=== PATIENT | male | born 1960 | race Caucasian/White ===

== ENCOUNTER 2017-06-01 20:46 | Observation (INO) | payer OTHER ==
--- NOTE | 2017-06-02 00:24 | PDOC ---
History of Present Illness <Taran De León - Last Filed: 06/02/17 06:54> - History of Present Illness Initial Comments: 06/02/17 00:25 Patient is a 56 year old male who presents with self inflicted bilateral arm lacerations. The patient states that he was feeling depressed and hopeless for 3 months. He describes some "life and " event in his life that he does not want to elaborate on pushing him to feel overwhelmed and unable to handle life. He subsequently cut his arms bilaterally with a knife and took 12 codine pills, but reports vomiting due to nausea immediately afterward. He denies having ever done anything like this in the past. He states that he has a lot of stressers in his life with a strained relationship with is and recently losing his housing. He denies weapons in the home, but cannot contract for safty if he were to be discharged. He denies fevers, chills, SOB, chest pain, abdominal pain. <Stefano Parra - Last Filed: 06/03/17 19:55> - General Chief Complaint: Psychiatric Stated Complaint: CUTTING HIMSELF Time Seen by Provider: 06/01/17 21:56 Past History <Taran De León - Last Filed: 06/02/17 06:54> - Past Medical History HTN: Yes - Psycho/Social/Smoking Cessation Hx Anxiety: Yes Suicidal Ideation: No Smoking History: Never smoked Have you smoked in the past 12 months: No Information on smoking cessation initiated: No Hx Alcohol Use: No Drug/Substance Use Hx: No Substance Use Type: None <Stefano Parra - Last Filed: 06/03/17 19:55> - Past Medical History Allergies/Adverse Reactions: Allergies Allergy/AdvReac Type Severity Reaction Status Date / Time No Known Allergies Allergy Verified 06/01/17 21:14 Home Medications: Ambulatory Orders Hydrochlorothiazide 25 mg PO DAILY 06/01/17 Review of Systems - Review of Systems Constitutional: No: Chills, Fever Respiratory: No: Cough, Shortness of Breath Cardiac (ROS): No: Chest Pain, Lightheadedness, Palpitations ABD/GI: Yes: Nausea, Vomiting. No: Constipated, Diarrhea Integumentary: No: Rash Neurological: No: Headache, Numbness, Tingling, Weakness Psychiatric: Yes: Anxiety, Depression, Stressors, Emotional Problems <Stefano Parra - Last Filed: 06/03/17 19:55> *Physical Exam - Vital Signs Last Vital Signs Temp Pulse Resp BP Pulse Ox 97.9 F 70 18 142/97 99 06/01/17 21:15 06/01/17 21:15 06/01/17 21:15 06/01/17 21:15 06/01/17 21:15 <Taran De León - Last Filed: 06/02/17 06:54> - Vital Signs Last Vital Signs Temp Pulse Resp BP Pulse Ox 97.9 F 70 18 142/97 99 06/01/17 21:15 06/01/17 21:15 06/01/17 21:15 06/01/17 21:15 06/01/17 21:15 - Physical Exam Comments: 06/02/17 00:32 General Appearance: Nourished. No Apparent Distress HEENT: No Pharyngeal Erythema, Tonsillar Exudate, Tonsillar Erythema Respiratory/Chest: Lungs Clear, Normal Breath Sounds. No Crackles, Rales, Rhonchi, Wheezing Cardiovascular: Regular Rhythm, Regular Rate. No Murmur, Gallop/S3, Gallop/S4 Gastrointestinal/Abdominal: Normal Bowel Sounds, Soft. No Guarding, Rebound, Tenderness Extremity: Normal Capillary Refill, Multiple superficial lacerations bilaterally on the forearms 6 of which require suturing. 2+ radial pulses. Intact distal sensation to light touch and temperature. Integumentary: positive: Normal Color, Dry, Warm Neurologic: Fully Oriented, Alert, Normal Response, Depressed mood and affect <Frederic Parrael - Last Filed: 06/03/17 19:55> Procedures - Laceration/Wound Repair Both Distal Volar Arm Wound Length: 2.6 to 5.0 cm (Right Arm: 1cm laceration, 3cm laceration, 1.5cm laceration Left Arm: 1cm laceration 2cm Laceration 1cm Laceration) Wound Explored: clean, no foreign body present Wound's Depth, Shape: superficial, linear Irrigated w/ Saline: Yes Anesthesia: 1% Lidocaine Amount of Anesthetic (ccs): 5 Wound Repaired With: Sutures Suture Size/Type: 4:0 Number of Sutures: 9 Layer Closure: Yes Sterile Dressing Applied: Yes <Stefano Parra - Last Filed: 06/03/17 19:55> ED Treatment Course - LABORATORY CBC & Chemistry Diagram: 06/03/17 08:00 06/03/17 08:00 <Stefano Parra - Last Filed: 06/03/17 19:55> Medical Decision Making - Medical Decision Making 06/02/17 06:[address] Quiroga @6:53am. Awaiting call back. <Taran De León - Last Filed: 06/02/17 06:54> - Medical Decision Making 06/02/17 00:33 Patient is a 56 year old male who presents with self inflicted bilateral arm lacerations. Lacerations were repaired with 4-0 nylon sutures. The patient states that he regrets what he did, however he cannot contract for safety if he were to be discharged. We are not comfortable discharging him without psychiatric consultation at this time and will consult psych. <Stefano Parra - Last Filed: 06/03/17 19:55> *DC/Admit/Observation/Transfer <Taran De León - Last Filed: 06/02/17 06:54> <Stefano Parra - Last Filed: 06/03/17 19:55> Diagnosis at time of Disposition: Depression with suicidal ideation, Laceration, Anxiety, Suicidal behavior with attempted self-injury, Dehydration HTN (hypertension) Qualifiers: Hypertension type: unspecified Qualified Code(s): I10 - Essential (primary) hypertension - Discharge Dispostion Condition at time of disposition: Fair
--- NOTE | 2017-06-02 07:44 | PDOC ---
*Physical Exam - Vital Signs Last Vital Signs Temp Pulse Resp BP Pulse Ox 97.9 F 70 18 142/97 99 06/01/17 21:15 06/01/17 21:15 06/01/17 21:15 06/01/17 21:15 06/01/17 21:15 - Physical Exam Comments: 06/02/17 07:41 VSS lying comfortably in stretcher, no acute physical distress Heart Score/ECG Review #1 ECG reviewed & interpreted by me at: 07:46 General ECG Interpretation: Sinus Rhythm, Normal Rate (62), Normal Intervals ( qtc 438, qrs 104), No acute ischemic changes ED Treatment Course - LABORATORY CBC & Chemistry Diagram: 06/02/17 07:47 06/02/17 07:47 Medical Decision Making - Medical Decision Making 06/02/17 07:42 Received signout on this 56y/o M with multiple life stressors who presented last night with cutting 2/2 self-injurious behavior last night. Psychiatry consulted, patient awaiting psych evaluation. Will perform medical clearance evaluation (labs, EKG) while awaiting psychiatry. Dr. Quiroga to see the patient this morning. 06/02/17 10:56 CBC/Chem wnl, EKG wnl. etoh negative, asa/apap pending, utox pending. Clinically unchanged. At this time Medically cleared for psych evaluation. Seen by Dr. Quiroga, patient to be admitted for inpatient care. Case management involved, will arrange for psych inpatient transfer. 06/02/17 13:44 No immediate psych inpatient bed available. Accepted for observation med/surg with 1:[address] Perla, signout given to BECCA Shankar *DC/Admit/Observation/Transfer Diagnosis at time of Disposition: Depression with suicidal ideation - Discharge Dispostion Condition at time of disposition: Fair Admit: Yes
--- NOTE | 2017-06-02 07:59 | PDOC ---
Attending Attestation - Resident Resident Name: Stefano Parra - ED Attending Attestation I have performed the following: I have examined & evaluated the patient, The case was reviewed & discussed with the resident, I agree w/resident's findings & plan, Exceptions are as noted - HPI HPI: 06/02/17 07:57 Self Mutilation---- first time ever Multiple stressors.... Very Depressed - Physicial Exam PE: 06/02/17 07:58 VSS, Flat Affect, Poor Eye Contact Unable to really contract for safety - Medical Decision Making 06/02/17 07:[address] Parra Assessment and Plan- I believe patient needs to see psychiatry prior to disposition in the ED
--- NOTE | 2017-06-02 08:03 | PDOC ---
*Physical Exam - Vital Signs Last Vital Signs Temp Pulse Resp BP Pulse Ox 97.9 F 70 18 142/97 99 06/01/17 21:15 06/01/17 21:15 06/01/17 21:15 06/01/17 21:15 06/01/17 21:15 - Physical Exam Comments: 06/02/17 07:57 GENERAL: Awake, alert, and fully oriented, in no acute distress HEAD: No signs of trauma, normocephalic, atraumatic EYES: PERRLA, EOMI, sclera anicteric, conjunctiva clear NECK: Normal ROM, supple, no lymphadenopathy, JVD, or masses LUNGS: No distress, speaks full sentences, clear to auscultation bilaterally HEART: Regular rate and rhythm, normal S1 and S2, no murmurs, rubs or gallops, peripheral pulses normal and equal bilaterally. EXTREMITIES: Multiple non bleeding horizontal lacerations at bilateral distal volar wrist. Normal inspection, Normal range of motion, no edema. No clubbing or cyanosis. SKIN: Warm, Dry, normal turgor, no rashes or lesions noted. ED Treatment Course - LABORATORY CBC & Chemistry Diagram: 06/02/17 07:47 06/02/17 07:47 Medical Decision Making - Medical Decision Making 06/02/17 07:58 56 yo M who presents with bilateral arm lacerations. Pt. with no h/o of self harm or self inflicted injury presents to the ED with hopelessness and depression for past 3 months. Per checkout by Dr. Haro pt. has been experiencing difficulties with his marriage and contemplated suicide. Pt. currently does not have a plan, but if discharged he cannot definitively ensure his own safety. ED Course: - Awaiting medical clearance and psych referall. 06/02/17 10:14 CBC, CMP Unremarkable 06/02/17 10:15 Alcohol: Neg Acetaminophen Salicylate 06/02/17 11:[address] Quiroga. Pt. to be admitted. *DC/Admit/Observation/Transfer Diagnosis at time of Disposition: Depression with suicidal ideation
[2017-06-02 08:20] LABS: BASOPHIL 0.2 % (0-2.0); EOSINOPHIL 0.2 % (0-4.5); MCH 31.6 pg (25.7-33.7); MCHC 34.4 g/dl (32.0-35.9); MEAN CELL VOLUME 91.7 fl (80-96); MEAN PLT VOLUME 7.8 fl (7.5-11.1); NEUTROPHILS 78.1 % (42.8-82.8); PLATELET COUNT 227 K/MM3 (134-434); RDW 12.9 % (11.9-15.9); WHITE BLOOD COUNT 8.1 K/mm3 (4.0-10.0)
[2017-06-02 08:41] LABS: ALCOHOL < 5.0 mg/dl (0-5)
[2017-06-02 08:45] LABS: ALBUMIN 4.1 g/dl (3.4-5.0); ALK PHOS 80 U/L (45-117); ANION GAP 10 (8-16); BILIRUBIN,TOTAL 0.9 mg/dL (0.2-1.0); CALCIUM 9.4 mg/dL (8.5-10.1); CO2 27 mmol/L (21-32); GLUCOSE,RANDOM 105 mg/dL (74-106); SGOT/AST 7 U/L (15-37); SGPT/ALT 19 U/L (12-78); TOT PROT 7.3 g/dl (6.4-8.2)
--- NOTE | 2017-06-02 10:58 | CON.PSY ---
Psychiatry Consult Chief Complaint: Attempted Suiicide with multiple deep cuts to both wrists and he also toom ten Vicodion tabs. 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 Recently seperated , living in a rented room. No major support sysyems. Reports panic attacks. Symptoms: reports: Depressed Mood, Suicidality, Self destructive thoughts - Previous Psychiatric Treatment Outpatient: None Inpatient: None - Previous Substance Abuse Treatment Outpatient: None Inpatient: None - Allergies Allergies: Allergies Allergy/AdvReac Type Severity Reaction Status Date / Time No Known Allergies Allergy Verified 06/01/17 21:14 - Current Living Status Usual Living Arrangement: Alone - Current Mental Status Evaluation Appearance: Disheveled Attitude: Guarded - Affect Affect: Constrictive Appropriateness: Appropriate to Content - Mood Mood: Depressed - Speech/Language Expressive: Coherent - Psychomotor Activity Psychomotor Activity: Slowed - Thought Process Thought Process: Intact - Thought Content Hallucinations: Absent Delusions: Absent - Cognition Attention: Alert Orientation: Time Memory, Immediate Recall: Intact Memory, Short Term: 3/3 Memory, Remote with Promptin/3 - Concentration Serial Sevens Intact: Yes Simple Calculations Intact: Yes - Abstraction Proverb Interpretation: Intact - Impulse Control Impulse Control: Moderately Impaired - Suicidal Ideation Suicidal Ideation: Yes (laceration of both wrists) - Homicidal Ideation Homicidal Ideation: No Assessment/Plan Patient needs In Patient Psych Admission to treat Major Depression AND SUICIDE bEHAVIOUR.
--- NOTE | 2017-06-02 15:18 | HP ---
Admitting History and Physical - Admission Chief Complaint: suicide attempt History of Present Illness: This is a 56 year old male with pmhx of HTN (no longer on HCTZ) presented to the ED with bilateral wrist lacerations. The patient states he cut himself. He is feeling very overwhelmed, recently from his (a story too long to be told now) he moved out and is living in a room. Currently, he says he does not think he wants to harm himself or has a plan, but he is unsure. He is feeling his heart come out of his chest and anxious. Per ED record pt states he took several vicodin History Source: Patient Limitations to Obtaining History: No Limitations - Past Medical History Cardiovascular: Yes: HTN - Smoking History Smoking history: Never smoked Have you smoked in the past 12 months: No - Alcohol/Substance Use Hx Alcohol Use: No History of Substance Use: reports: None - Social History Usual Living Arrangement: Yes: Alone ADL: Independent History of Recent Travel: No Home Medications - Allergies Allergies/Adverse Reactions: Allergies Allergy/AdvReac Type Severity Reaction Status Date / Time No Known Allergies Allergy Verified 06/01/17 21:14 - Home Medications Home Medications: Ambulatory Orders Hydrochlorothiazide 25 mg PO DAILY 06/01/17 Review of Systems - Review of Systems Constitutional: reports: No Symptoms Eyes: reports: No Symptoms HENT: reports: No Symptoms Neck: reports: No Symptoms Cardiovascular: reports: Palpitations Respiratory: reports: No Symptoms Gastrointestinal: reports: No Symptoms Genitourinary: reports: No Symptoms Musculoskeletal: reports: No Symptoms Integumentary: reports: No Symptoms Neurological: reports: No Symptoms Endocrine: reports: No Symptoms Hematology/Lymphatic: reports: No Symptoms Psychiatric: reports: Anxiety, Depression, Suicidal Physical Examination Vital Signs: Vital Signs Temperature 97.9 F 06/01/17 21:15 Pulse Rate 80 06/02/17 14:33 Respiratory Rate 18 06/02/17 14:33 Blood Pressure 159/102 06/02/17 14:33 O2 Sat by Pulse Oximetry (%) 98 06/02/17 14:33 Constitutional: Yes: Anxious Eyes: Yes: Conjunctiva Clear HENT: Yes: Atraumatic Neck: Yes: Supple Cardiovascular: Yes: Regular Rate and Rhythm, Tachycardia Respiratory: Yes: Regular, CTA Bilaterally Gastrointestinal: Yes: Normal Bowel Sounds, Soft Renal/: Yes: WNL Musculoskeletal: Yes: WNL Extremities: Yes: WNL Edema: No Integumentary: Yes: Erythema (bilateral wrist), Laceration (bilateral wrist) Wound/Incision: Yes: Sutures Intact (bilateral wrist), Open to air, Reddened Neurological: Yes: Alert, Oriented, Cran Nerves II-XII Intact ...Motor Strength: WNL Psychiatric: Yes: Alert, Oriented, Suicidal Ideation Problem List - Problems (1) Suicidal behavior with attempted self-injury Code(s): T14.91 - SUICIDE ATTEMPT (2) Anxiety Code(s): F41.9 - ANXIETY DISORDER, UNSPECIFIED (3) Depression Code(s): F32.9 - MAJOR DEPRESSIVE DISORDER, SINGLE EPISODE, UNSPECIFIED (4) HTN (hypertension) Code(s): I10 - ESSENTIAL (PRIMARY) HYPERTENSION Assessment/Plan Assessment: 56 year old male admitted with suicidal attempt. Plan: 1. Suicidal Attempt - 2PC commit - Awaiting psych center placement - 1:1 monitoring - 1/2 ns 83cc/hr x1L - Wound cleansing daily - Toxicity levels pending Visit type - Emergency Visit Emergency Visit: Yes ED Registration Date: 06/02/17 Care time: The patient presented to the Emergency Department on the above date and was hospitalized for further evaluation of their emergent condition. - New Patient This patient is new to me today: Yes Date on this admission: 06/02/17 - Critical Care Critical Care patient: No
[2017-06-02] MEDS ORDERED: SODIUM CHLORIDE 0.45% 1,000 ML IV SCH (16:00)
[2017-06-02 16:39] VITALS: BMI 22.7
--- NOTE | 2017-06-02 17:27 | EKG ---
Test Reason : Blood Pressure : / mmHG Vent. Rate : 062 BPM Atrial Rate : 062 BPM P-R Int : 154 ms QRS Dur : 104 ms QT Int : 432 ms P-R-T Axes : 048 -05 033 degrees QTc Int : 438 ms NORMAL SINUS RHYTHM NORMAL ECG NO PREVIOUS ECGS AVAILABLE REPEAT EKG IF CLINICALLY INDICATED Confirmed by EARLE CLARKE MD ([id number]) on 06/02/2017 5:27:02 PM Referred By: Confirmed By:EARLE CLARKE MD
[2017-06-02 17:37] LABS: URINE APPEARANCE CLEAR; URINE BILIRUBIN NEGATIVE (NEGATIVE); URINE BLOOD NEGATIVE (NEGATIVE); URINE COLOR DKYELLOW; URINE GLUCOSE (UA) NEGATIVE (NEGATIVE); URINE KETONE TRACE (NEGATIVE); URINE LEUK ESTERASE NEGATIVE (NEGATIVE); URINE NITRITE NEGATIVE (NEGATIVE); URINE UROBILINOGEN NEGATIVE mg/dL (0.2-1.0)
--- NOTE | 2017-06-02 17:42 | PDOC ---
*Physical Exam - Vital Signs Last Vital Signs Temp Pulse Resp BP Pulse Ox 97.9 F 84 18 147/83 95 06/01/17 21:15 06/02/17 16:20 06/02/17 16:20 06/02/17 16:20 06/02/17 16:20 ED Treatment Course - LABORATORY CBC & Chemistry Diagram: 06/02/17 07:47 06/02/17 07:47 - ADDITIONAL ORDERS Additional order review: Laboratory Results 06/02/17 06/02/17 07:47 07:47 Sodium 142 Potassium 3.6 Chloride 105 Carbon Dioxide 27 Anion Gap 10 BUN 17 Creatinine 1.0 Creat Clearance w eGFR > 60 Random Glucose 105 Calcium 9.4 Total Bilirubin 0.9 AST 7 L ALT 19 Alkaline Phosphatase 80 Total Protein 7.3 Albumin 4.1 Alcohol, Quantitative < 5.0 06/02/17 07:47 RBC 4.42 MCV 91.7 MCHC 34.4 RDW 12.9 MPV 7.8 Neutrophils % 78.1 Lymphocytes % 14.9 Monocytes % 6.6 Eosinophils % 0.2 Basophils % 0.2 *DC/Admit/Observation/Transfer Diagnosis at time of Disposition: Depression with suicidal ideation, Laceration, Anxiety, Suicidal behavior with attempted self-injury, Dehydration HTN (hypertension) Qualifiers: Hypertension type: unspecified Qualified Code(s): I10 - Essential (primary) hypertension - Discharge Dispostion Condition at time of disposition: Fair Admit: Yes
[2017-06-02 17:48] LABS: URINE PROTEIN 1+ (NEGATIVE)
[2017-06-02 17:49] LABS: URINE BACTERIA RARE /hpf (NONE SEEN); URINE MUCUS RARE; URINE RBC 4 /hpf (0-3); URINE WBC <1 /hpf (3-5)
[2017-06-03 09:04] LABS: BASOPHIL 0.4 % (0-2.0); EOSINOPHIL 0.9 % (0-4.5); MCH 31.4 pg (25.7-33.7); MCHC 34.5 g/dl (32.0-35.9); MEAN CELL VOLUME 91.1 fl (80-96); MEAN PLT VOLUME 8.1 fl (7.5-11.1); NEUTROPHILS 63.6 % (42.8-82.8); PLATELET COUNT 221 K/MM3 (134-434); RDW 12.8 % (11.9-15.9); WHITE BLOOD COUNT 5.2 K/mm3 (4.0-10.0)
[2017-06-03 09:41] LABS: ALBUMIN 4.1 g/dl (3.4-5.0); ALK PHOS 80 U/L (45-117); ANION GAP 10 (8-16); BILIRUBIN,TOTAL 1.3 mg/dL (0.2-1.0); CALCIUM 9.3 mg/dL (8.5-10.1); CO2 28 mmol/L (21-32); CREATININE 1.1 mg/dL (0.7-1.3); GLUCOSE,RANDOM 104 mg/dL (74-106); MAGNESIUM 2.4 mg/dL (1.8-2.4); PHOSPHOROUS 3.1 mg/dL (2.5-4.9); SGOT/AST 5 U/L (15-37); SGPT/ALT 19 U/L (12-78); TOT PROT 6.8 g/dl (6.4-8.2)
--- NOTE | 2017-06-03 18:18 | PN ---
Physical Exam: SUBJECTIVE: Patient seen and examined. He says he feels good, he still is not sure if he would attempt suicide if he left, he doesn't have a plan. Says his family is aware of what happened, including . OBJECTIVE: Vital Signs Period Temp Pulse Resp BP Sys/Bishop Pulse Ox Last 24 Hr 98.0 F-98.7 F 63-78 20-20 124-145/78-96 98 PE Neuro: alert, awake, cn 2-12intact Psych: nervous Pulm: CTAB Cv: s1 s2 rrr no mrg Abd: s nt nd + bs skin: b/l wrist laceration + sutures in tact, area read, no draining Laboratory Results - last 24 hr 06/02/17 06/03/17 06/03/17 17:20 08:00 08:00 WBC 5.2 D RBC 4.48 Hgb 14.1 Hct 40.8 MCV 91.1 MCH 31.4 MCHC 34.5 RDW 12.8 Plt Count 221 MPV 8.1 Neutrophils % 63.6 Lymphocytes % 28.1 D Monocytes % 7.0 Eosinophils % 0.9 D Basophils % 0.4 Sodium 141 Potassium 3.8 Chloride 103 Carbon Dioxide 28 Anion Gap 10 BUN 16 Creatinine 1.1 Creat Clearance w eGFR > 60 Random Glucose 104 Calcium 9.3 Phosphorus 3.1 Magnesium 2.4 Total Bilirubin 1.3 H D AST 5 L D ALT 19 Alkaline Phosphatase 80 Total Protein 6.8 Albumin 4.1 Urine Color Dkyellow Urine Appearance Clear Urine pH 5.0 Ur Specific [place] >= 1.030 H Urine Protein 1+ H Urine Glucose (UA) Negative Urine Ketones Trace H Urine Blood Negative Urine Nitrite Negative Urine Bilirubin Negative Urine Urobilinogen Negative Ur Leukocyte Esterase Negative Urine RBC 4 Urine WBC <1 Urine Bacteria Rare Urine Mucus Rare 06/02/17 06/02/17 07:47 17:20 Salicylates Pending Opiates Screen Pending Methadone Screen Pending Alcohol, Quantitative < 5.0 Assessment: 56 year old male admitted with suicidal attempt. Plan: 1. Suicidal Attempt - 2PC commit - Awaiting psych center placement - 1:1 monitoring - Wound cleansing daily - Toxicity levels pending Problem List - Problems (1) Suicidal behavior with attempted self-injury Code(s): T14.91 - SUICIDE ATTEMPT (2) Anxiety Code(s): F41.9 - ANXIETY DISORDER, UNSPECIFIED (3) Depression Code(s): F32.9 - MAJOR DEPRESSIVE DISORDER, SINGLE EPISODE, UNSPECIFIED (4) HTN (hypertension) Code(s): I10 - ESSENTIAL (PRIMARY) HYPERTENSION Qualifiers: Hypertension type: unspecified Qualified Code(s): I10 - Essential ( primary) hypertension Visit type - Emergency Visit Emergency Visit: Yes ED Registration Date: 06/02/17 Care time: The patient presented to the Emergency Department on the above date and was hospitalized for further evaluation of their emergent condition. - New Patient This patient is new to me today: No - Critical Care Critical Care patient: No
[2017-06-03 19:39] LABS: URINE MARIJUANA THC NEGATIVE ng/ml (CUTOFF=50)
[2017-06-03 20:11] LABS: SALICYLATE < 4.0 mg/dl (0.0-30.0)
--- NOTE | 2017-06-04 13:48 | PN ---
Physical Exam: SUBJECTIVE: Patient seen and examined. He says his thoughts go up and down and hes feeling overwhelmed about losing his living situation and possibly job OBJECTIVE: Vital Signs Period Temp Pulse Resp BP Sys/Bishop Pulse Ox Last 24 Hr 97.7 F-98.0 F 65-78 20-20 124-144/89-94 98-98 PE Neuro: alert, awake, cn 2-12intact Pulm: CTAB Cv: s1 s2 rrr no mrg Abd: s nt nd + bs Skin: b/l wrist laceration + sutures in tact, non draining Psych: appears calm Laboratory Results - last 24 hr 06/02/17 17:20 Opiates Screen Positive Methadone Screen Negative Barbiturate Screen Negative Phencyclidine Screen Negative Ur Amphetamines Screen Negative MDMA (Ecstasy) Screen Negative Benzodiazepines Screen Negative Cocaine Screen Negative U Marijuana (THC) Screen Negative Assessment: 56 year old male admitted with suicidal attempt. Plan: 1. Suicidal Attempt - 2PC commit - Awaiting psych center placement - 1:1 monitoring - Wound cleansing daily - U tox noted Problem List - Problems (1) Suicidal behavior with attempted self-injury Code(s): T14.91 - SUICIDE ATTEMPT (2) Anxiety Code(s): F41.9 - ANXIETY DISORDER, UNSPECIFIED (3) Depression Code(s): F32.9 - MAJOR DEPRESSIVE DISORDER, SINGLE EPISODE, UNSPECIFIED (4) HTN (hypertension) Code(s): I10 - ESSENTIAL (PRIMARY) HYPERTENSION Qualifiers: Hypertension type: unspecified Qualified Code(s): I10 - Essential ( primary) hypertension Visit type - Emergency Visit Emergency Visit: Yes ED Registration Date: 06/02/17 Care time: The patient presented to the Emergency Department on the above date and was hospitalized for further evaluation of their emergent condition. - New Patient This patient is new to me today: No - Critical Care Critical Care patient: No
--- NOTE | 2017-06-05 09:28 | PN ---
Physical Exam: SUBJECTIVE: Patient seen and examined at the bedside. Remains on a 1:1: Appears very nervous, anxious. OBJECTIVE: Cooperative, verbalizing anxiety, nervous appearing Will start low dose Lorazepam 0.5mg TID Re-consult psyche for possible anti depressive therapy? Hypertensive, re-start home dose HCTZ Vital Signs Period Temp Pulse Resp BP Sys/Bishop Pulse Ox Last 24 Hr 97.6 F-98.1 F 68-82 18-20 140-155/88-96 98-98 GENERAL: The patient is awake, alert, and fully oriented, anxious HEAD: Normal with no signs of trauma. EYES: PERRL, extraocular movements intact, sclera anicteric, conjunctiva clear. No ptosis. ENT: Ears normal, nares patent, oropharynx clear without exudates, moist mucous membranes. NECK: Trachea midline, full range of motion, supple. LUNGS: Breath sounds equal, clear to auscultation bilaterally, no wheezes, no crackles ABDOMEN: Soft, nontender, nondistended, normoactive bowel sounds, no guarding, no rebound, no hepatosplenomegaly, no masses. EXTREMITIES: 2+ pulses, warm, well-perfused, no edema. NEUROLOGICAL: anxiety, nervous, verbalizing fear PSYCH: anxiety, nervous, verbalizing fear SKIN: bilateral wrists lacerations/self mutilations, cuts, +sutures, no drainage , no redness, cuts appear to be healing, scabbed over, no bleeding noted Active Medications Generic Name Dose Route Start Last Admin Trade Name Freq PRN Reason Stop Dose Admin Lorazepam 0.5 mg 06/05/17 14:00 Ativan - PO TID [facility] ASSESSMENT/PLAN: Patient is a 56 year old male who presents to the ED on 06/02/2017 with self inflicted bilateral arm lacerations. As per ED records, patient reported feeling depressed, hopeless and anxious. He reported having multiple stressors at home. He reported that he had some "life and " event in his life that he does not want to elaborate which makes him feel overwhelmed and unable to handle life. He subsequently cut his arms bilaterally with a knife and took 12 Vicodin pills. However, he reported in the ED that he vomited due to nausea immediately after taking pills. He states that he has a lot of stresses in his life with a strained relationship with is and recently losing his housing. He denies weapons in the home, but since could not contract to safety on d/c he was a risk for further self harm. He denies fevers, chills, SOB, chest pain, abdominal pain. Since admission, he has been placed on a 1:1 monitoring. His wrist wounds were sutured in the ED. His Toxicity levels were + for opiates. Psyche: Suicidal Attempt by wrist lacerations A/P: Not a safe home discharge, placed on 1:1 suicide monitoring by psyche Awaiting psyche inpatient placement Tox levels reviewed, + opiates Re-consulted psyche for possible start of anti depressants Patient started on Ativan 0.5mg TID for anxiety Cardiology: Hypertension - chronic A/P: BP slightly elevated, started on home dose of HCTZ Monitor BP F.E.N. Fluids: tolerating PO Electrolytes: monitor Nutrition: regular diet Prophylaxis: SCDS in bed GI: Protonix Disposition: medically cleared for transfer to inpatient psyche facility. Continue 1:1 monitoring for safety. Full Code. Visit type - Emergency Visit Emergency Visit: Yes ED Registration Date: 06/02/17 Care time: The patient presented to the Emergency Department on the above date and was hospitalized for further evaluation of their emergent condition. - New Patient This patient is new to me today: Yes Date on this admission: 06/05/17 - Critical Care Critical Care patient: No - Discharge Referral Referred to [facility] Med P.C[facility] No
[2017-06-05] MEDS ORDERED: HYDROCHLOROTHIAZIDE 25 MG TABLET (FP) PO SCH (10:00)
[2017-06-05] MEDS: LORazepam 0.5 MG TABLET PO SCH ×2 (10:40→15:30)
[2017-06-05] MEDS ORDERED: LORazepam 0.5 MG TABLET PO SCH (14:00)
[2017-06-05 14:23] VITALS: BP 158/95; PULSE 83; TEMP 97.9
--- NOTE | 2017-06-05 19:10 | DS ---
Physical Exam: SUBJECTIVE: Patient seen and examined OBJECTIVE: Vital Signs Period Temp Pulse Resp BP Sys/Bishop Pulse Ox Last 24 Hr 97.6 F-98 F 68-83 18-20 150-158/88-96 PHYSICAL EXAM GENERAL: The patient is awake, alert, and fully oriented, in no acute distress. HEAD: Normal with no signs of trauma. EYES: PERRL, extraocular movements intact, sclera anicteric, conjunctiva clear. ENT: Ears normal, nares patent, oropharynx clear without exudates, moist mucous membranes. NECK: Trachea midline, full range of motion, supple. LUNGS: Breath sounds equal, clear to auscultation bilaterally, no wheezes, no crackles, no accessory muscle use. HEART: Regular rate and rhythm, S1, S2 without murmur, rub or gallop. ABDOMEN: Soft, nontender, nondistended, normoactive bowel sounds, no guarding, no rebound, no hepatosplenomegaly, no masses. EXTREMITIES: 2+ pulses, warm, well-perfused, no edema. NEUROLOGICAL: Cranial nerves II through XII grossly intact. Normal speech, gait not observed. PSYCH: Normal mood, normal affect. SKIN: Warm, dry, normal turgor, no rashes or lesions noted. LABS HOSPITAL COURSE: Date of Admission:06/02/17 Date of Discharge: 06/05/17 Discharge Summary Reason For Visit: SUICIDAL BEHAVIOR WITH ATTEMPTED SELF INJURY Current Active Problems Anxiety (Acute) Dehydration (Acute) Depression (Acute) Depression with suicidal ideation (Acute) HTN (hypertension) (Acute) Laceration (Acute) Suicidal behavior with attempted self-injury (Acute) Condition: Guarded - Instructions Diet, Activity, Other Instructions: Transfer to [facility] Referrals: Sawyer Quiroga MD [Staff Physician] - Disposition: TRANSFER ACUTE CARE/OTHER HOSP - Home Medications Comprehensive Discharge Medication List: Ambulatory Orders Hydrochlorothiazide 25 mg PO DAILY 06/01/17 Hydrochlorothiazide [Hctz -] 25 mg PO DAILY tablet 06/05/17 Lorazepam [Ativan] 0.5 mg PO TID #30 tablet MDD 3 tabs 06/05/17 - Discharge Referral Referred to [facility] No
== END 2017-06-05 19:44 ==
LOC: JER 20:46 → JERBED 06-02 11:54 → J6S 06-02 18:40
PROVIDERS: ADMIT Internal Medicine; ATTEND Nurse Practitioner Family
PROC: 0HQEXZZ Repair Left Lower Arm Skin, External Approach (ICD-10-PCS; principal; 2017-06-02)
PROC: 0HQDXZZ Repair Right Lower Arm Skin, External Approach (ICD-10-PCS; 2017-06-02)
DX: T14.91 Suicide attempt (principal); T40.2X2A Poisoning by other opioids, intentional self-harm, initial encounter; S51.812A Laceration without foreign body of left forearm, initial encounter; S51.811A Laceration without foreign body of right forearm, initial encounter; S61.511A Laceration without foreign body of right wrist, initial encounter; S61.512A Laceration without foreign body of left wrist, initial encounter; X78.1XXA Intentional self-harm by knife, initial encounter; Y93.9 Activity, unspecified; Y92.9 Unspecified place or not applicable; F41.9 Anxiety disorder, unspecified; E86.0 Dehydration; I10 Essential (primary) hypertension; R00.0 Tachycardia, unspecified
CPT/HCPCS: 36415; 80053; 80307; 81003; 81015; 83735; 84100; 85025; 93005; 93010; 99284-25; G0378